=== PATIENT | male | born 1950 | race Caucasian/White ===

== ENCOUNTER 2017-12-13 23:13 | Emergency (ER) | payer OTHER ==
[2017-12-13] MEDS ORDERED: Tetracaine 0.5% OPTH.SOL 4 ML* 1 DROP BTL ONE (23:52)
[2017-12-13] MEDS ORDERED: Fluorescein Sod TOPICAL 0.6* 0.6 MG TEST OPHTHALMIC ONE (23:52)
[2017-12-14] MEDS ORDERED: Polymyx/Trimethoprim OPTH* 10 ML BTL LEFT EYE ONE (00:32)
--- NOTE | 2017-12-14 00:32 | ED ---
Throat Pain/Nasal Congestion - HPI Summary HPI Summary: 67-year-old male presents with potential foreign body in left eye. He states he was watching fireworks and got a piece of wood likely on his eye. He states he scratches eye and the pain got worse. He states he irrigated out and feels like the object was removed. His tetanus is up-to-date. He wears glasses. Has history of high blood pressure and DM. Did not taking anything for pain. No change in vision. No other injury. - History of Current Complaint Chief Complaint: EDEyeProblem Time Seen by Provider: 12/13/17 23:52 - Allergies/Home Medications Allergies/Adverse Reactions: Allergies Allergy/AdvReac Type Severity Reaction Status Date / Time detergents Allergy Mild Rash Uncoded 08/27/13 16:19 PMH/Surg Hx/FS Hx/Imm Hx Endocrine/Hematology History: Reports: Hx Diabetes Cardiovascular History: Reports: Hx Hypertension Infectious Disease History: No Infectious Disease History: Denies: Traveled Outside the [place] in Last 30 Days - Family History Known Family History: Positive: Diabetes - Social History Alcohol Use: Daily Alcohol Amount: WINE DAILY Substance Use Type: Reports: None Smoking Status (MU): Former Smoker Have You Smoked in the Last Year: No Review of Systems Negative: Fever Positive: Erythema Negative: Chest Pain Negative: Shortness Of Breath All Other Systems Reviewed And Are Negative: Yes Physical Exam Triage Information Reviewed: Yes Vital Signs On Initial Exam: Initial Vitals Temp Pulse Resp BP Pulse Ox 98.5 F 54 16 133/84 95 12/13/17 23:16 12/13/17 23:16 12/13/17 23:16 12/13/17 23:16 12/13/17 23:16 Vital Signs Reviewed: Yes Appearance: Positive: Well-Appearing Skin: Positive: Warm, Dry Head/Face: Positive: Normal Head/Face Inspection Eyes: Positive: EOMI, FANTASMA, Conjunctiva Inflammed, Other: - scratch on conjunctiva seen at 3 position ENT: Positive: Normal ENT inspection, Pharynx normal, TMs normal Respiratory/Lung Sounds: Positive: Clear to Auscultation, Breath Sounds Present Cardiovascular: Positive: Normal, RRR Musculoskeletal: Positive: Normal Neurological: Positive: Normal Psychiatric: Positive: Normal Procedures - Eye Procedure Left Alcaine Drops Administered: Yes - uptake 1/2cm 3 position conjunctiva Diagnostics - Vital Signs Vital Signs Temp Pulse Resp BP Pulse Ox 12/13/17 23:16 98.5 F 54 16 133/84 95 - Laboratory Lab Statement: Any lab studies that have been ordered have been reviewed, and results considered in the medical decision making process. EENT Course/Dx - Course Course Of Treatment: 67-year-old male presents with potential foreign body in left eye. He states he was watching fireworks and got a piece of wood likely on his eye. He states he scratches eye and the pain got worse. He states he irrigated out and feels like the object was removed. His tetanus is up-to- date. He wears glasses. Has history of high blood pressure and DM. Did not taking anything for pain. No change in vision. No other injury. on exam has 1 /2cm conjunctival abrasion noted. no foreign body seen. irrigated with becca lens and feeling better. will discharge with polytrim. patient understand and agrees with plan. - Differential Diagnoses Differential Diagnoses: Conjunctivitis, Corneal Abrasion, Foreign Body - Diagnoses Provider Diagnoses: Foreign body of left eye Discharge - Sign-Out/Discharge Documenting (check all that apply): Discharge/Admit/Transfer - Discharge Plan Condition: Good Disposition: HOME Patient Education Materials: Corneal Abrasion (ED) Referrals: Heide Marr MD [Primary Care Provider] - Kyle Pandey MD [Medical Doctor] - Additional Instructions: Place 1 drop in eye 4 times a day for 5 days Use artificial tears or saline to rinse eye for symptomatic relief Take Tylenol or ibuprofen for pain Follow up with ophthalmology if no improvement in 5 days Return to ED if develop any new or worsening symptoms - Billing Disposition and Condition Condition: GOOD Disposition: Home
[2017-12-14 04:06] VITALS: BP 148/78
== END 2017-12-14 01:48 | disposition home or self-care (01) ==
LOC: ED 23:13
DX: T15.92XA Foreign body on external eye, part unspecified, left eye, initial encounter (principal); S05.02XA Injury of conjunctiva and corneal abrasion without foreign body, left eye, initial encounter; Z87.891 Personal history of nicotine dependence; Z86.79 Personal history of other diseases of the circulatory system
CPT/HCPCS: 99282; A9270-GY